=== PATIENT | female | born 1955 | race Caucasian/White ===

== ENCOUNTER → 2016-07-16 | Outpatient (CLI) | payer OTHER ==
[~2016-07-16] MED LIST: LORA-741 PO
--- NOTE | 2016-07-16 16:38 | MAMMOGRAPHY REPORT ---
BILATERAL DIGITAL SCREENING MAMMOGRAM WITH CAD: 07/16/2016 CLINICAL HISTORY: Routine screening. Patient has no complaints. TECHNIQUE: Bilateral CC and MLO views were obtained. Current study was also evaluated with a Comput er Aided Detection (CAD) system. COMPARISON: Comparison is made to exams dated: 07/12/2015 mammogram, 07/09/2014 mammogram, 07/08/2012 ultrasound, 07/04/2012 mammogram - [facility], and 06/19/2007. BREAST COMPOSITION: There are scattered areas of fibroglandular density in both breasts. FINDINGS: There are scattered stable coarse and punctate microcalcifications throughout the breasts. Stable asymmetries in the medial right breast and superior left breast. No new suspicious mass, a rchitectural distortion or cluster of microcalcifications is seen. IMPRESSION: ACR BI-RADS CATEGORY 1: NEGATIVE There is no mammographic evidence of malignancy. A 1 year screening mammogram is recommended. The p atient will receive written notification of the results. Approximately 10% of breast cancers are not detected with mammography. A negative mammographic repor t should not delay biopsy if a clinically suggestive mass is present. Yisel Maldonado M.D. ay/:07/16/2016 13:59:23 Metal Flow Coordinator: Anitra Tadeo, [facility] letter sent: Normal 1/2 BI-RADS Code: ACR BI-RADS Category 1: Negative
== END | disposition home or self-care (01) ==
LOC: C.MAMM 10:50
PROVIDERS: ATTEND Family Medicine
DX: Z12.31 Encounter for screening mammogram for malignant neoplasm of breast (principal)

== ENCOUNTER → 2017-01-25 | Outpatient (CLI) | payer OTHER ==
--- NOTE | 2017-01-25 14:59 | DIAGNOSTIC IMAGING REPORT ---
RIGHT UPPER EXTREMITY VENOUS DOPPLER HISTORY: PAIN AND SWELLING UPPER RIGHT EXT COMPARISON STUDY: None. FINDINGS: The right internal jugular vein is patent. There is normal flow within the right subclavian vein. There is normal flow and compressibility within the right axillary, basilic, brachial, radial, ulnar, and visualized cephalic veins. IMPRESSION: No DVT within the right upper extremity. Electronically signed by: Everardo Babin M.D. 01/25/2017 2:58 PM Dictated Date/Time: 01/25/2017 2:57 PM
== END | disposition home or self-care (01) ==
LOC: C.ULTR 14:16
PROVIDERS: ATTEND Physician Assistant
DX: M79.601 Pain in right arm (principal)

== ENCOUNTER → 2017-07-15 | Outpatient (CLI) | payer OTHER ==
[~2017-07-15] MED LIST changes: +KETO10TA PO; +MULT1CHW37 PO; +OXYC-57 PO
[2017-07-15 15:37] LABS: BASO ABS # 0.05 K/uL (0-0.2); EOS % 3.7 %; EOS ABS # 0.18 K/uL (0-0.5); HEMATOCRIT 25.3 % (37-47); IG# 0.01 K/uL (0.00-0.02); LYMPH % 38.3 %; LYMPH ABS # 1.87 K/uL (1.2-3.4); MEAN CELL VOLUME 83.2 fL (80-100); MEAN CORPUSCULAR HEMOGLOBIN 26.3 pg (25-34); MEAN CORPUSCULAR HGB CONC 31.6 g/dl (32-36); MEAN PLATELET VOLUME 10.1 fL (7.4-10.4); MONO % 7.6 %; MONO ABS # 0.37 K/uL (0.11-0.59); NEUT % 49.2 %; PLATELET COUNT 414 K/uL (130-400); RED CELL DISTRIBUTION WIDTH CV 15.1 % (11.5-14.5); WHITE BLOOD COUNT 4.88 K/uL (4.8-10.8)
[2017-07-15 16:24] LABS: BLOOD UREA NITROGEN 19 mg/dl (7-18); CALCIUM 8.7 mg/dl (8.5-10.1); CARBON DIOXIDE 24 mmol/L (21-32); CREATININE 1.04 mg/dl (0.60-1.20); GLUCOSE 95 mg/dl (70-99); POTASSIUM 3.9 mmol/L (3.5-5.1); SODIUM 138 mmol/L (136-145)
== END | disposition home or self-care (01) ==
LOC: C.CPL 14:46
PROVIDERS: ATTEND Orthopaedic Surgery
DX: M75.51 Bursitis of right shoulder (principal)

== ENCOUNTER → 2017-07-17 | Outpatient (CLI) | payer OTHER ==
--- NOTE | 2017-07-17 14:14 | MAMMOGRAPHY REPORT ---
BILATERAL DIGITAL SCREENING MAMMOGRAM TOMOSYNTHESIS WITH CAD: 07/17/2017 CLINICAL HISTORY: Routine screening. Patient has no complaints. TECHNIQUE: Breast tomosynthesis in addition to standard 2D mammography was performed. Current study was also evaluated with a Computer Aided Detection (CAD) system. COMPARISON: Comparison is made to exams dated: 07/16/2016 mammogram, 07/12/2015 mammogram, 07/09/2014 m ammogram, 07/06/2013 mammogram, 07/08/2012 ultrasound, and 07/08/2012 mammogram - [facility]. BREAST COMPOSITION: There are scattered areas of fibroglandular density in both breasts. FINDINGS: No suspicious masses, calcifications, or areas of architectural distortion are noted in ei ther breast. There has been no significant interval change compared to prior exams. Bilateral asymme tries and scattered bilateral benign-appearing calcifications are not significantly changed. Lobulat ed mass within the left lateral breast is stable dating back to at least the 2008 exam. IMPRESSION: ACR BI-RADS CATEGORY 2: BENIGN There is no mammographic evidence of malignancy. A 1 year screening mammogram is recommended. The pa tient will receive written notification of the results. Approximately 10% of breast cancers are not detected with mammography. A negative mammographic report should not delay biopsy if a clinically suggestive mass is present. Cesia Hylton M.D. /:07/17/2017 11:46:53 International Trade Specialist: Nadege HUERTA)(Ritika), [facility] letter sent: Normal 1/2 BI-RADS Code: ACR BI-RADS Category 2: Benign
== END | disposition home or self-care (01) ==
LOC: C.MAMM 11:07
PROVIDERS: ATTEND Physician Assistant
DX: Z12.31 Encounter for screening mammogram for malignant neoplasm of breast (principal)

== ENCOUNTER → 2017-07-18 | Day surgery (SDC) | payer OTHER ==
[2017-07-16 12:02] VITALS: Ht 160 cm; Wt 72.7 kg
[~2017-07-18] VITALS: Ht 160 cm; Wt 72.7 kg
[~2017-07-18] MED LIST changes: +ATROPINE SULFATE 0.1 MG/ML 5ML SYR IV PRN; +BUPIVACAINE 0.25% 30 ML VIAL ONE; +CEFAZOLIN 1000MG IV PUSH 7.5 ML IV SCH; +DEXAMETHASONE SOD INJ 4 MG/ML VIAL ONE; +EpHEDrine SULFATE INJ 50 MG/ML AMP IV PRN; +EpINEphrine INJ 1MG/ML AMP 1 MG/ML AMP ONE; +FENTANYL CITRATE INJ 50 MCG/1 ML 2 ML VIAL ONE; +FLUMAZENIL 0.1 MG/1 ML 10 ML VIAL IV PRN; +HYDROmorphone INJ 0.5 MG/0.5 ML SYR ONE; +HYDROmorphone INJ 2 MG/ML SYR/VIAL IV PRN; +LABETALOL HCL IV 5 MG/ML 20ML IV PRN; +LACTATED RINGER'S 1000ML 1,000 ML IV SCH; +LIDOCAINE HCL 2% 2 ML VIAL (20MG/ML) ONE; +MEPERIDINE HCL 25 MG/ML CARP IV PRN; +MIDAZOLAM HCL 1 MG/ML 2ML VIAL ONE; +NALOXONE HCL 0.4 MG/1 ML VIAL/CARP IV PRN; +ONDANSETRON INJ 2 MG/ML 2 ML VIAL IV PRN; +ONDANSETRON INJ 2 MG/ML 2 ML VIAL ONE; +OXYCODONE/ACETAMINOPHEN 5-325 TAB PO PRN; +PHENYLEPHRINE 100MCG/ML 5ML SYR IV PRN; +PROPOFOL IV EMULSION 10 MG/ML 20 ML VIAL IV ONE; +SODIUM CHLORIDE 0.9% 1000ML 1,000 ML IV SCH
--- NOTE | 2017-07-18 06:35 | History & Physical Bridge Note ---
H&P Re-Evaluation Bridge Note: I have examined the patient, reviewed the History & Physical and in the interval since the performance of the History & Physical I have noted the following changes of clinical significance: No changes noted
--- NOTE | 2017-07-18 07:54 | [facility] Post Operative Brief Note ---
Immediate Operative Summary Operative Date Jul 18, 2017. Pre-Operative Diagnosis Right Bicep Tendinitis Post-Operative Diagnosis Same Procedure(s) Performed Right Open Distal Biceps Tenodesis Surgeon Dr. Sousa Retanner Surgeon(s) Pato Buckley PA-C Estimated Blood Loss 5ml Findings Consistent with Post-Op Diagnosis Specimens none Anesthesia Type General Complication(s) none Disposition Disposition: Recovery Room / PACU
--- NOTE | 2017-07-18 08:07 | Discharge Instructions-SurgCtr ---
Discharge Instructions Date of Service Jul 18, 2017. Visit Reason for Visit: Right Biceps Tendinitis Discharge Discharge Diagnosis / Problem: SAME ABOVE Discharge Goals Goal(s): Decrease discomfort, Improve function Activity Recommendations Activity Limitations: as noted below Lifting Limitations: until after follow-up appointment Exercise/Sports Limitations: until after follow-up appointment Driving or Machine Use: WHEN OUT OF THE SLING AND OFF OF PAIN MEDICAITON Anesthesia . Post Anesthesia Instructions: If you have had General Anesthesia or IV Sedation: * Do not drive today. * Resume driving when surgeon permits. * Do not make important decisions or sign legal documents today. * Call surgeon for: 1. Temperature elevations greater than 101 degrees F. 2. Uncontrollable pain. 3. Excessive bleeding. 4. Persistent nausea and vomiting. 5. Medication intolerance (nausea, vomiting or rash). * For nausea and vomiting use only clear liquids such as: tea, soda, bouillon until nausea subsides, then gradually increase diet as tolerated. * If you have any concerns or questions, call your surgeon's office. If physician is unavailable and it is an emergency, call 911 or go to the nearest emergency room. . Diet Recommendations Home Diet: no limitations Fluid Restriction: None Procedures Procedures Performed: Right Open Distal Biceps Tenodesis Pending Studies Studies pending at discharge: no Work Instructions Return To Work: after follow-up Medical Emergencies . Who to Call and When: Medical Emergencies: If at any time you feel your situation is an emergency, please call 911 immediately. . Non-Emergent Contact Non-Emergency issues call your: Primary Care Provider Call Non-Emergent contact if: you have a fever, temperature is above 101.5 . . "Provider Documentation" section prepared by Timothy Buckley. .
--- NOTE | 2017-07-18 08:10 | OPERATIVE REPORT ---
DATE OF OPERATION: 07/18/2017 PREOPERATIVE DIAGNOSIS: High grade partial right distal biceps tendon rupture. POSTOPERATIVE DIAGNOSIS: Same. PROCEDURE: Right distal biceps tenodesis. SURGEON: Des Sousa DO. INSTRUCTIONAL COACH: Timothy Buckley PA-C, whose assistance was necessary for retraction and closure. ANESTHESIA: General. COMPLICATIONS: None. CONDITION: Stable to PACU. INDICATIONS: Sarahi is a pleasant 61-year-old female who has been dealing with a 6-8 month history of right elbow pain. Her pain has been becoming more severe. It was radiating down her forearm and upper arm. She went to extensive workup and finally MRI of the elbow showed a very high grade partial distal biceps tendon rupture. Most of her pain was located in this area. She elected to undergo a biceps tenodesis. DESCRIPTION OF PROCEDURE: On 07/18/2017, she arrived at [facility] for the above procedure. She was seen in the preoperative holding and the operative extremity was identified and signed. She was given a preoperative antibiotic and taken back to operating room, laid on table in supine position and put under general anesthesia. The right elbow was then prepped and draped in sterile fashion. Time-out was done. The patient and operative extremity was properly identified. An anterior Clement approach was used. Dissection was taken down through the mobile wad and the flexor pronator mass. Care was taken not to disrupt the cutaneous nerves or any of the neurovascular structures. Dissection was taken down right to the radial tuberosity. 90% of the tendon was torn off. About 10% was remaining. A abrams elevator was used to remove the last 10% of the radial tuberosity. The tendon was then pulled out of the wound. The tendon was then whipstitched with an Arthrex FiberLoop. A 3.2 mm biceps pin was placed through the radial tuberosity and out to the posterior cortex. The tuberosity was then drilled with a 7.5 mm reamer. A biceps button was then placed on the tails from the FiberLoop suture. The biceps button was then passed through the 7.5 mm hole and out the posterior cortex. The button was then flipped and tension slide technique was used to deliver the biceps tendon into the 7.5 mm hole. This gave good fixation. A single 7 x 10 mm biointerference screw was then placed and it pushed the tendon ulnarly. The tails were wrapped around the screw and tied. The tails were then cut. The arm was brought through a full range of motion. I was able to get full extension of the elbow. The repair felt nice and strong. The surrounding soft tissues were then injected with 25 mL of Marcaine with epinephrine. The tourniquet was then deflated. Hemostasis was easily controlled. The wound was then irrigated and closed with 3-0 Vicryl and 4-0 nylon sutures in a mattress fashion. She was then placed in a soft dressing and taken to postanesthesia care unit in stable condition. She tolerated the procedure well. I attest to the content of the Intraoperative Record and any orders documented therein. Any exception s are noted below.
[2017-07-18] MEDS: FENTANYL CITRATE INJ 50 MCG/1 ML 2 ML VIAL IV PRN ×3 (08:18→08:34)
--- NOTE | 2017-07-18 09:36 | Anesthesia Progress Nt - [facility] ---
Anesthesia Post Op Note Date & Time Jul 18, 2017 at 09:35 Vital Signs Pain Intensity: 2 Vital Signs Past 12 Hours Date Time Temp Pulse Resp B/P (MAP) Pulse Ox O2 Delivery O2 Flow Rate FiO2 07/18/17 09:28 77 15 98 07/18/17 09:28 77 15 98 07/18/17 09:28 79 15 07/18/17 09:28 79 15 07/18/17 09:27 157/83 07/18/17 09:27 157/83 07/18/17 09:23 75 16 07/18/17 09:23 73 16 97 07/18/17 09:23 75 16 07/18/17 09:23 73 16 97 07/18/17 09:21 161/89 07/18/17 09:21 161/89 07/18/17 09:18 76 15 97 07/18/17 09:18 76 15 97 07/18/17 09:18 76 15 07/18/17 09:18 76 15 07/18/17 09:16 167/86 07/18/17 09:16 167/86 07/18/17 09:13 74 16 07/18/17 09:13 74 16 100 07/18/17 09:13 74 16 100 07/18/17 09:13 74 16 07/18/17 09:11 170/90 07/18/17 09:11 170/90 07/18/17 09:08 82 17 100 07/18/17 09:08 81 17 07/18/17 09:08 82 17 100 07/18/17 09:08 81 17 07/18/17 09:06 163/105 07/18/17 09:06 163/105 07/18/17 09:03 96 23 98 07/18/17 09:03 97 23 07/18/17 09:03 97 23 07/18/17 09:03 96 23 98 07/18/17 09:01 187/137 07/18/17 09:01 187/137 07/18/17 08:58 92 20 07/18/17 08:58 94 20 100 07/18/17 08:58 94 20 100 07/18/17 08:58 92 20 07/18/17 08:56 193/141 07/18/17 08:56 193/141 07/18/17 08:53 97 16 3/22/18 08:53 97 16 3/22/18 08:53 97 16 100 3/22/18 08:53 97 16 100 3/22/18 08:51 181/121 3/22/18 08:51 181/121 3/22/18 08:48 95 31 3/22/18 08:48 100 31 100 3/22/18 08:48 100 31 100 3/22/18 08:48 95 31 3/22/18 08:46 185/124 3/22/18 08:46 185/124 3/22/18 08:43 92 23 3/22/18 08:43 90 23 100 3/22/18 08:43 92 23 3/22/18 08:43 90 23 100 3/22/18 08:41 194/131 3/22/18 08:41 194/131 3/22/18 08:38 88 20 3/22/18 08:38 88 20 3/22/18 08:38 90 20 99 /22/18 08:38 90 20 99 3/22/18 08:36 181/125 3/22/18 08:36 181/125 3/22/18 08:33 81 16 3/22/18 08:33 80 16 100 3/22/18 08:33 80 16 100 3/22/18 08:33 81 16 3/22/18 08:31 165/102 3/22/18 08:31 165/102 3/22/18 08:28 83 13 100 3/22/18 08:28 86 13 3/22/18 08:28 83 13 100 322/18 08:28 86 13 3/22/18 08:26 144/97 3/22/18 08:26 144/97 3/22/18 08:23 81 18 97 3/22/18 08:23 81 18 97 /22/18 08:23 82 18 /22/18 08:23 82 18 /22/18 08:22 154/110 3/22/18 08:22 154/110 /22/18 08:18 80 20 3/22/18 08:18 79 20 97 /22/18 08:18 80 20 3/22/18 08:18 79 20 97 22/18 08:17 80 19 97 3/22/18 08:17 81 19 3/22/18 08:16 114/85 07/18/17 08:12 79 28 99 07/18/17 08:12 80 28 07/18/17 08:11 144/128 07/18/17 08:08 37.0 87 24 140/96 94 Mask 5 07/18/17 08:07 89 07/18/17 08:07 89 92 07/18/17 06:35 36.7 88 16 131/97 (108) 100 Room Air Notes Mental Status: alert / awake / arousable, participated in evaluation Pt Amnestic to Procedure: Yes Nausea / Vomiting: adequately controlled Pain: adequately controlled Airway Patency, RR, SpO2: stable & adequate BP & HR: stable & adequate Hydration State: stable & adequate Anesthetic Complications: no major complications apparent
[2017-07-18 10:00] VITALS: TEMP 36.9
[2017-07-18 10:43] VITALS: BP 121/61; PULSE 78; O2SAT 96
== END | disposition home or self-care (01) ==
LOC: X.SURG 06:16
PROVIDERS: ATTEND Orthopaedic Surgery
DX: M75.21 Bicipital tendinitis, right shoulder (principal); K21.9 Gastro-esophageal reflux disease without esophagitis; E66.9 Obesity, unspecified; K44.9 Diaphragmatic hernia without obstruction or gangrene; Z85.828 Personal history of other malignant neoplasm of skin; Z90.710 Acquired absence of both cervix and uterus; Z82.49 Family history of ischemic heart disease and other diseases of the circulatory system; Z82.3 Family history of stroke

== ENCOUNTER → 2017-08-26 | Outpatient (CLI) | payer OTHER ==
[~2017-08-26] MED LIST changes: -ATROPINE SULFATE 0.1 MG/ML 5ML SYR IV PRN; -BUPIVACAINE 0.25% 30 ML VIAL ONE; -CEFAZOLIN 1000MG IV PUSH 7.5 ML IV SCH; -DEXAMETHASONE SOD INJ 4 MG/ML VIAL ONE; -EpHEDrine SULFATE INJ 50 MG/ML AMP IV PRN; -EpINEphrine INJ 1MG/ML AMP 1 MG/ML AMP ONE; -FENTANYL CITRATE INJ 50 MCG/1 ML 2 ML VIAL ONE; -FLUMAZENIL 0.1 MG/1 ML 10 ML VIAL IV PRN; -HYDROmorphone INJ 0.5 MG/0.5 ML SYR ONE; -HYDROmorphone INJ 2 MG/ML SYR/VIAL IV PRN; -LABETALOL HCL IV 5 MG/ML 20ML IV PRN; -LACTATED RINGER'S 1000ML 1,000 ML IV SCH; -LIDOCAINE HCL 2% 2 ML VIAL (20MG/ML) ONE; -MEPERIDINE HCL 25 MG/ML CARP IV PRN; -MIDAZOLAM HCL 1 MG/ML 2ML VIAL ONE; -NALOXONE HCL 0.4 MG/1 ML VIAL/CARP IV PRN; -ONDANSETRON INJ 2 MG/ML 2 ML VIAL IV PRN; -ONDANSETRON INJ 2 MG/ML 2 ML VIAL ONE; -OXYCODONE/ACETAMINOPHEN 5-325 TAB PO PRN; -PHENYLEPHRINE 100MCG/ML 5ML SYR IV PRN; -PROPOFOL IV EMULSION 10 MG/ML 20 ML VIAL IV ONE; -SODIUM CHLORIDE 0.9% 1000ML 1,000 ML IV SCH
--- NOTE | 2017-08-26 17:20 | DIAGNOSTIC IMAGING REPORT ---
R UPPER EXT JOINT WITHOUT CLINICAL HISTORY: RIGHT SHOULDER PAIN pain TECHNIQUE: Multi axial MRI acquisition COMPARISON STUDY: None FINDINGS: Signal characteristics of the osseous structures are in general unremarkable. There is considerable hypertrophic changes of the acromioclavicular joint. This creates moderate impingement upon the musculotendinous junction of the supraspinatus. There is a small joint effusion including fluid within the acromioclavicular joint as well as the subdeltoid bursa. The evaluation of the rotator cuff demonstrates a fall focal full-thickness tear of the mid to anterior aspect of the supraspinatus tendon at the juncture with the greater trochanter. There is a 1 cm musculotendinous retraction. There are mild component of tendinopathy involving the musculotendinous junction due to the impingement factor from the acromioclavicular joint. The remaining components of the rotator cuff including subscapularis and infraspinatus tendons appear unremarkable. Glenoid labrum shows no well-defined acute tear. All additional muscular tendinous structures appear unremarkable. The biceps tendon is intact within the bicipital groove. IMPRESSION: 1. 1. Full-thickness tear mid to anterior aspect supraspinatus tendon. 2. Mild 1 cm musculotendinous retraction. 3. Moderate tendinopathy of the musculotendinous junction of the supraspinatus secondary to hypertrophic changes of the acromioclavicular joint. 4. Small joint effusion. 5. Remainder of the study is unremarkable. The above report was generated using voice recognition software. It may contain grammatical, syntax or spelling errors. Electronically signed by: Kobe Dc M.D. 08/26/2017 5:19 PM Dictated Date/Time: 08/26/2017 5:13 PM
== END | disposition home or self-care (01) ==
LOC: C.MRIBC 16:15
PROVIDERS: ATTEND Orthopaedic Surgery
DX: M75.101 Unspecified rotator cuff tear or rupture of right shoulder, not specified as traumatic (principal)

== ENCOUNTER → 2017-09-03 | Outpatient (CLI) | payer OTHER ==
[2017-09-03 12:31] LABS: BASO % 1.9 %; EOS ABS # 0.16 K/uL (0-0.5); HEMATOCRIT 40.5 % (37-47); IG# 0.01 K/uL (0.00-0.02); LYMPH % 38.5 %; LYMPH ABS # 2.02 K/uL (1.2-3.4); MEAN CELL VOLUME 85.4 fL (80-100); MEAN CORPUSCULAR HEMOGLOBIN 27.4 pg (25-34); MEAN CORPUSCULAR HGB CONC 32.1 g/dl (32-36); MEAN PLATELET VOLUME 10.4 fL (7.4-10.4); MONO % 5.1 %; MONO ABS # 0.27 K/uL (0.11-0.59); NEUT % 51.3 %; NEUT ABS # 2.69 K/uL (1.4-6.5); PLATELET COUNT 361 K/uL (130-400); RED CELL DISTRIBUTION WIDTH CV 17.6 % (11.5-14.5); RED CELL DISTRIBUTION WIDTH SD 54.9 fL (36.4-46.3); WHITE BLOOD COUNT 5.25 K/uL (4.8-10.8)
[2017-09-03 18:20] LABS: BLOOD UREA NITROGEN 12 mg/dl (7-18); CALCIUM 9.2 mg/dl (8.5-10.1); CARBON DIOXIDE 28 mmol/L (21-32); CREATININE 1.09 mg/dl (0.60-1.20); GLUCOSE 71 mg/dl (70-99); POTASSIUM 4.5 mmol/L (3.5-5.1); SODIUM 140 mmol/L (136-145)
== END | disposition home or self-care (01) ==
LOC: C.LABBFT 11:14
PROVIDERS: ATTEND Orthopaedic Surgery
DX: Z01.812 Encounter for preprocedural laboratory examination (principal); M75.121 Complete rotator cuff tear or rupture of right shoulder, not specified as traumatic